=== PATIENT | male | born 1950 | race Caucasian/White ===

== ENCOUNTER 2022-09-29 08:34 | Emergency (ER) | payer OTHER ==
[~2022-09-29] VITALS: Ht 180.3 cm; Wt 117.9 kg
[2022-09-29 08:39] VITALS: BP_SYST 181
[2022-09-29 09:15] LABS: BASOPHILS % (AUTO) 0.6 % (0.0-2.0); EOSINOPHILS # (AUTO) 0.2 K/uL (0.0-0.4); EOSINOPHILS % (AUTO) 2.3 % (0.0-4.0); HEMOGLOBIN 14.1 g/dL (14.0-18.0); LYMPHOCYTES # (AUTO) 0.8 K/uL (1.0-5.5); LYMPHOCYTES % (AUTO) 11.4 % (20.5-51.5); MEAN CORPUSCULAR HEMOGLOBIN 29 pg (27-31); MEAN CORPUSCULAR HGB CONC 34 % (32-36); MEAN CORPUSCULAR VOLUME 86 fL (79.0-98.0); MONOCYTES # (AUTO) 0.8 K/uL (0.0-1.0); MONOCYTES % (AUTO) 11.2 % (1.7-9.3); NEUTROPHILS # (AUTO) 5.3 K/uL (1.8-7.7); NEUTROPHILS % (AUTO) 74.5 % (40.0-70.0); PLATELET COUNT (AUTO) 167 K/uL (130-430); RED BLOOD CELL COUNT(AUTO) 4.86 MIL/uL (4.2-6.2); WHITE BLOOD COUNT (AUTO) 7.1 K/uL (4.8-10.8)
[2022-09-29 09:42] VITALS: BP_SYST 174
== END 2022-09-29 09:42 | disposition home or self-care (01) ==
LOC: SED 08:34
DX: R04.0 Epistaxis (principal); I10 Essential (primary) hypertension; Z79.899 Other long term (current) drug therapy
CPT/HCPCS: 36415; 85025; 99284

== ENCOUNTER 2022-10-01 08:08 | Emergency (ER) | payer OTHER ==
[~2022-10-01] VITALS: Ht 172.7 cm; Wt 72.6 kg
--- NOTE | 2022-10-01 08:15 | NUR ---
Placed in room 02 . Placed on surveillance system monitor, blood pressure machine and pulse oximeter. To gown for exam. Side rails up. Report given to MARLON GILBERT.
--- NOTE | 2022-10-01 08:16 | NUR ---
DR OLIVER IN ROOM FOR EXAM
[2022-10-01 08:19] VITALS: BP_SYST 174
[2022-10-01] MEDS ORDERED: TELM80TA2 PO (08:21)
--- NOTE | 2022-10-01 08:22 | NUR ---
DR OLIVER AWARE OF BP 174/92, NO ORDERS RECEIEVED. OKAY FOR PT TO BE DISCHARGED. PT DENIES ANY VISION CHANGES, NO HEADACHE, NO CP OR SOB. SKIN W/D/I
[2022-10-01 08:25] VITALS: BP_SYST 174
--- NOTE | 2022-10-01 08:26 | NUR ---
Patient given written and verbal discharge instructions and verbalizes understanding. ER MD discussed with patient the results and treatment provided. Patient in stable condition. ID arm band removed. Rx of TELMISARTAN-MICRADIS given. Patient educated on pain management and to follow up with PMD. Pain Scale . Opportunity for questions provided and answered. Medication side effect fact sheet provided.
== END 2022-10-01 08:26 | disposition home or self-care (01) ==
LOC: SED 08:08
DX: R04.0 Epistaxis (principal); I10 Essential (primary) hypertension; Z79.899 Other long term (current) drug therapy
CPT/HCPCS: 99283